=== PATIENT | male | born 1960 | race Caucasian/White ===

== ENCOUNTER 2022-11-11 15:37 | Inpatient (IN) | payer SELFPAY ==
[~2022-11-11] VITALS: Ht 182.9 cm; Wt 88.0 kg
[2022-11-11 15:41] VITALS: O2SAT 99
[2022-11-11] MEDS ORDERED: LABETALOL HCL VIAL 20 MG/4 ML VIAL IV ONE (16:00)
[2022-11-11 16:22] LABS: BG BASE EXCESS 3.6 mmol/L (-2.0-2.0); BG CARBOXYHEMOGLOBIN 0.3 % (0.5-1.5); BG DEOXYHEMOGLOBIN 6.3 % (0.0-5.0); BG METHEMOGLOBIN 0.2 % (0.0-1.5); BG OXYGEN SATURATION 93.7 % (92.0-98.5); BG OXYHEMOGLOBIN 93.2 % (94.0-97.0); BG PCO2 36.6 mmHg (35.0-45.0); BG PH 7.486 (7.350-7.450); BG PO2 67.1 mmHg (75.0-100.0); BG SAMPLE SITE RIGHT BRACHIAL; BG TOTAL HEMOGLOBIN 10.8 g/dL (12.0-18.0); BG VENT MODE ROOM AIR
[2022-11-11] MEDS ORDERED: LABETALOL 5MG/ML SYR 20 MG/4 ML SYRINGE IV SCH (16:30)
[2022-11-11 16:47] LABS: BASOPHILS % 1.5 % (0.0-2.0); EOSINOPHILS % 5.9 % (0.0-5.0); HEMATOCRIT. 31.4 % (42.0-52.0); HEMOGLOBIN. 10.5 g/dL (14.0-18.0); LYMPHOCYTES % 17.6 % (20.0-50.0); MEAN CORPUSCULAR HEMOGLOBIN 29.5 pg (28.0-32.0); MEAN CORPUSCULAR VOLUME 88.5 fL (80.0-94.0); MEAN PLATELET VOLUME 8.5 fl (7.4-10.4); PLATELET 181 x1000/uL (130-400); RED BLOOD CELL COUNT 3.55 mill/uL (4.7-6.1)
[2022-11-11 16:58] LABS: CHLORIDE 100 mEq/L (98-107)
[2022-11-11 16:59] LABS: INR 0.9; PARTIAL THROMBOPLASTIN TIME 41.1 sec (23.4-31.0); PROTHROMBIN TIME 9.9 sec (9.6-11.0)
[2022-11-11 17:10] LABS: ETHANOL BLOOD < 10 mg/dL (-10)
[2022-11-11] MEDS ORDERED: HYDRALAZINE 20MG/ML VIAL IV ONE (18:45)
[2022-11-11 19:22] LABS: *AMPHETAMINES SCREEN URINE NEGATIVE (NEGATIVE); *BARBITURATES SCREEN URINE NEGATIVE (NEGATIVE); *BENZODIAZEPINES SCREEN URINE NEGATIVE (NEGATIVE); *COCAINE SCREEN URINE NEGATIVE (NEGATIVE); CANNABINOID URINE SCREEN NEGATIVE (NEGATIVE); METHADONE URINE SCREEN NEGATIVE (NEGATIVE); OPIATES URINE SCREEN NEGATIVE (NEGATIVE); PHENCYCLIDINE URINE SCREEN NEGATIVE (NEGATIVE)
[2022-11-11] MEDS ORDERED: ZOLPIDEM TARTRATE 5MG TABLET PO PRN (21:30)
[2022-11-11] MEDS ORDERED: ONDANSETRON HCL 4MG/2ML INJ IV PRN (21:30)
[2022-11-11] MEDS ORDERED: LORAZEPAM 0.5MG TABLET PO PRN (21:30)
[2022-11-11] MEDS ORDERED: CLONIDINE 0.1MG TABLET PO NR (21:30)
[2022-11-11] MEDS ORDERED: GUAIFENESIN 200MG/10ML SUGAR FREE UDC PO PRN (21:30)
[2022-11-11] MEDS ORDERED: CLONIDINE 0.1MG TABLET PO PRN (21:30)
[2022-11-11] MEDS ORDERED: ACETAMINOPHEN 325MG TABLET PO PRN ×2 (21:30)
[2022-11-11] MEDS ORDERED: DOCUSATE SODIUM 100MG CAPSULE PO PRN (21:30)
[2022-11-11] MEDS ORDERED: IPRATROPIUM/ALBUTEROL 0.5-3(2.5)MG/3ML NEB HHN PRN (21:30)
[2022-11-11] MEDS ORDERED: NITROGLYCERIN 0.4MG TABLET SL SL PRN (21:30)
[2022-11-11 23:13] LABS: CREATINE KINASE MB FRACTION 3.6 ng/mL (0.5-3.6)
[2022-11-11 23:18] LABS: FOLIC ACID (FOLATE) SERUM 8.4 ng/mL (>5.38)
[2022-11-11 23:25] LABS: T4 FREE 1.22 ng/dL (0.76-1.46)
[2022-11-12 06:19] LABS: HEMATOCRIT 28.8 % (42.0-52.0); HEMOGLOBIN 9.6 g/dL (14.0-18.0); MEAN CORPUSCULAR HEMOGLOBIN 29.7 pg (28.0-32.0); MEAN CORPUSCULAR VOLUME 88.6 fL (80.0-94.0); PLATELET 175 x1000/uL (130-400); RED BLOOD CELL COUNT 3.25 mill/uL (4.7-6.1); RED CELL DISTRIBUTION WIDTH 13.9 % (11.6-14.6)
[2022-11-12 06:26] LABS: PHOSPHORUS 7.5 mg/dL (2.5-4.9)
[2022-11-12] MEDS ORDERED: PANTOPRAZOLE 40MG DR TABLET PO SCH (06:30)
[2022-11-12] MEDS ORDERED: HYDRALAZINE 20MG/ML VIAL IV PRN (07:30)
[2022-11-12 07:41] LABS: CREATINE KINASE MB FRACTION 3.1 ng/mL (0.5-3.6)
[2022-11-12] MEDS ORDERED: AMLODIPINE 5MG TABLET PO SCH (09:00)
[2022-11-12 09:48] VITALS: BP 157/70; PULSE 76; RESP 14; TEMP 98.3
== END 2022-11-12 09:44 | disposition left against medical advice (07) | DRG 198 ==
LOC: ER 15:37 → MICUSO 18:40 → EDBEDREQTM 18:55 → EDBEDREQ 18:55
PROVIDERS: ADMIT Internal Medicine; ATTEND Internal Medicine
DX: I25.10 Atherosclerotic heart disease of native coronary artery without angina pectoris (principal); I12.0 Hypertensive chronic kidney disease with stage 5 chronic kidney disease or end stage renal disease; E11.22 Type 2 diabetes mellitus with diabetic chronic kidney disease; D63.1 Anemia in chronic kidney disease; Z53.29 Procedure and treatment not carried out because of patient's decision for other reasons; N18.6 End stage renal disease; Z79.899 Other long term (current) drug therapy; Z99.2 Dependence on renal dialysis; Z79.4 Long term (current) use of insulin
CPT/HCPCS: 36415; 36600; 70460; 71045; 71275; 80048; 80053; 80061; 80305; 80320; 82375; 82550; 82553; 82607; 82746; 82805; 83036; 83540; 83550; 83605; 83735; 83880; 84100; 84145; 84439; 84443; 84484; 85025; 85027; 86850; 86900; 93005; 93970; 99285; J0360; J3490; G0480